=== PATIENT | female | born 1955 | race Caucasian/White ===

== ENCOUNTER 2020-08-27 19:27 | Emergency (ER) | payer SELFPAY ==
[~2020-08-27] VITALS: Ht 162.5 cm; Wt 61.2 kg
[2020-08-27 19:39] LABS: BASOPHILS # (AUTO) 0.1 10^3/uL (0.0-0.1); BASOPHILS % (AUTO) 1 % (0-10); EOSINOPHILS # (AUTO) 0.5 10^3/uL (0.0-0.3); EOSINOPHILS % (AUTO) 9 % (0-10); HEMATOCRIT 41 % (35-52); HEMOGLOBIN 13.8 g/dL (11.5-16.0); LYMPHOCYTES # (AUTO) 2.1 10^3/uL (1.0-4.0); LYMPHOCYTES % (AUTO) 33 % (12-44); MEAN CORPUSCULAR HEMOGLOBIN 29 pg (25-34); MEAN CORPUSCULAR HGB CONC 34 g/dL (32-36); MEAN CORPUSCULAR VOLUME 87 fL (80-99); MEAN PLATELET VOLUME 10.3 fL (9.0-12.2); MONOCYTES # (AUTO) 0.5 10^3/uL (0.0-1.0); MONOCYTES % (AUTO) 8 % (0-12); NEUTROPHILS # (AUTO) 3.2 10^3/uL (1.8-7.8); NEUTROPHILS % (AUTO) 50 % (42-75); PLATELET COUNT 230 10^3/uL (130-400); WHITE BLOOD COUNT 6.4 10^3/uL (4.3-11.0)
[2020-08-27 19:47] LABS: ALBUMIN 4.5 GM/DL (3.2-4.5); CHLORIDE 104 MMOL/L (98-107); POTASSIUM 3.9 MMOL/L (3.6-5.0); SODIUM 139 MMOL/L (135-145)
[2020-08-27 19:48] LABS: CALCIUM 9.8 MG/DL (8.5-10.1)
[2020-08-27 19:49] LABS: GLUCOSE 136 MG/DL (70-105); TOTAL PROTEIN 7.5 GM/DL (6.4-8.2)
[2020-08-27] MEDS ORDERED: ASPIRIN 81 MG CHEW (CHILDREN'S ASA) PO STA (19:49)
[2020-08-27 19:50] LABS: CARBON DIOXIDE 24 MMOL/L (21-32)
[2020-08-27 19:51] LABS: BILIRUBIN,TOTAL 0.4 MG/DL (0.1-1.0)
[2020-08-27 19:53] LABS: ALKALINE PHOSPHATASE 80 U/L (40-136); CREATININE SERUM 0.92 MG/DL (0.60-1.30); GFR ESTIMATED > 60
[2020-08-27 19:54] LABS: BUN/CREATININE RATIO 12
[2020-08-27 19:56] LABS: ALANINE AMINOTRANSFERASE 29 U/L (0-55); INR 0.9 (0.8-1.4); MAGNESIUM 2.1 MG/DL (1.6-2.4); PROTHROMBIN TIME PATIENT 12.1 SEC (12.2-14.7)
[2020-08-27 19:57] LABS: BILIRUBIN,URINE NEGATIVE (NEGATIVE); CLARITY,URINE CLEAR; COLOR,URINE YELLOW; GLUCOSE, URINE (UA) NEGATIVE (NEGATIVE); KETONES,URINE NEGATIVE (NEGATIVE); LEUKOCYTE ESTERASE ,URINE TRACE (NEGATIVE); NITRITE,URINE NEGATIVE (NEGATIVE); PH,URINE 6.5 (5-9); PROTEIN,URINE NEGATIVE (NEGATIVE)
[2020-08-27] MEDS ORDERED: meTOprolol 5 MG/5 ML (LOPRESSOR) VIAL IV ONE (20:00)
[2020-08-27 20:05] LABS: BACTERIA,URINE NEGATIVE /HPF; WBC,URINE RARE /HPF
[2020-08-27 20:11] LABS: AMPHETAMINE SCREEN, URINE NEGATIVE (NEGATIVE); BARBITURATE SCREEN URINE NEGATIVE (NEGATIVE); BENZODIAZEPINES SCREEN URINE NEGATIVE (NEGATIVE); CANNABINOID SCREEN, URINE NEGATIVE (NEGATIVE); COCAINE SCREEN URINE NEGATIVE (NEGATIVE); METHADONE STAT NEGATIVE (NEGATIVE); METHAMPHETAMINE SCREEN URINE S NEGATIVE (NEGATIVE); OPIATE SCREEN URINE NEGATIVE (NEGATIVE); OXYCODONE STAT NEGATIVE (NEGATIVE); PROPOXYPHENE STAT NEGATIVE (NEGATIVE); TRICYCLIC ANTIDEPRESSANTS SCRE NEGATIVE (NEGATIVE)
--- NOTE | 2020-08-27 20:17 | ED Cardiac General ---
History of Present Illness General Chief Complaint: Cardiac/General Problems Stated Complaint: PALPITATIONS Nursing Triage Note: PT BROUGHT IN BY [facility] FROM HOME WITH COMPLAINT OF RACING/POUNDING HEART RATE. STATES STARTED AROUND 1830 AFTER EATING SUPPER. HR FOR FIRE WAS 120s ON ARRIVAL. EMS STATES PT HEART RATE WENT BELOW 90 AFTER IV WAS STARTED. PT STATES SHE FEELS SHAKY. History of Present Illness Date Seen by Provider: Aug 27, 2020 Time Seen by Provider: 19:35 Initial Comments 64-year-old female presents for palpitations that began approximately 1 hour ago. No known cardiac history. She had mild nausea when the palpitations were happened but it has now resolved. She is not on aspirin or any medications for blood pressure. She denies chest pain or shortness of air. She goes to [facility] for her primary care. She has never seen a insulator apprentice. No history of diabetes. She does yoga on a regular basis and tries to eat a healthy diet. She was recently told that her cholesterol was slightly elevated. She is trying new dietary restrictions to bring that down. No family history of cardiac disease. She reports difficulty sleeping last night but no added stress or anxiety in her life. Timing/Duration: 1-3 hours Severity: mild Activities at Onset: none NTG SL CANDY SUPERVISOR: No ASA po CANDY SUPERVISOR: No Associated Systoms: Denies Symptoms Allergies and Home Medications Allergies Coded Allergies: No Known Drug Allergies (Unverified , 08/27/20) Patient Home Medication List Home Medication List Reviewed: Yes Review of Systems Review of Systems Constitutional: no symptoms reported, see HPI Cardiovascular: See HPI; Denies Chest Pain, Denies Edema, Denies Irregular Heart Rate, Denies Lightheadedness; Palpitations; Denies Syncope Gastrointestinal: No Symptoms Reported, See HPI Psychiatric/Neurological: No Symptoms Reported, See HPI All Other Systems Reviewed Negative Unless Noted: Yes Past Kseznsh-Agkbjr-Qhqhgo Hx Past Med/Social Hx: Reviewed Nursing Past Med/Soc Hx Patient Social History Alcohol Use: Denies Use Smoking Status: Never a Smoker Recent Infectious Disease Expo: No Recent Hopitalizations: No Immunizations Up To Date Tetanus Booster (TDap): Unknown PED Vaccines UTD: Yes Seasonal Allergies Seasonal Allergies: Yes Past Medical History Surgeries: Yes Appendectomy, Breast, Section Respiratory: Yes Asthma Cardiac: No Neurological: No Genitourinary: No Gastrointestinal: No Musculoskeletal: No Endocrine: No HEENT: No Cancer: No Psychosocial: No Integumentary: No Blood Disorders: No Physical Exam Vital Signs Vital Signs - First Documented 08/27/20 19:27 Pulse 93 Resp 17 B/P (MAP) 177/95 (122) Pulse Ox 100 O2 Delivery Room Air Capillary Refill : Less Than 3 Seconds Height, Weight, BMI Height: '" Weight: lbs. oz. kg; 23.00 BMI Method: General Appearance: No Apparent Distress, WD/WN HEENT: PERRL/EOMI, TMs Normal, Normal ENT Inspection, Pharynx Normal Neck: Full Range of Motion, Normal Inspection, Non Tender, Supple Respiratory: Chest Non Tender, Lungs Clear, Normal Breath Sounds Cardiovascular: Regular Rate, Rhythm, No Edema, No Murmur, Normal Peripheral Pulses Gastrointestinal: Normal Bowel Sounds, Non Tender, Soft Extremity: Normal Capillary Refill, Normal Inspection, Normal Range of Motion, Non Tender, No Calf Tenderness, No Pedal Edema Neurologic/Psychiatric: Alert, Oriented x3, No Motor/Sensory Deficits, Normal Mood/Affect Skin: Normal Color, Warm/Dry Progress/Results/Core Measures Results/Orders Lab Results Laboratory Tests Test 08/27/20 19:31 08/27/20 19:49 Range/Units White Blood Count 6.4 4.3-11.0 10^3/uL Red Blood Count 4.70 3.80-5.11 10^6/uL Hemoglobin 13.8 11.5-16.0 g/dL Hematocrit 41 35-52 % Mean Corpuscular Volume 87 80-99 fL Mean Corpuscular Hemoglobin 29 25-34 pg Mean Corpuscular Hemoglobin Concent 34 32-36 g/dL Red Cell Distribution Width 12.8 10.0-14.5 % Platelet Count 230 130-400 10^3/uL Mean Platelet Volume 10.3 9.0-12.2 fL Immature Granulocyte % (Auto) 0 % Neutrophils (%) (Auto) 50 42-75 % Lymphocytes (%) (Auto) 33 12-44 % Monocytes (%) (Auto) 8 0-12 % Eosinophils (%) (Auto) 9 0-10 % Basophils (%) (Auto) 1 0-10 % Neutrophils # (Auto) 3.2 1.8-7.8 10^3/uL Lymphocytes # (Auto) 2.1 1.0-4.0 10^3/uL Monocytes # (Auto) 0.5 0.0-1.0 10^3/uL Eosinophils # (Auto) 0.5 H 0.0-0.3 10^3/uL Basophils # (Auto) 0.1 0.0-0.1 10^3/uL Immature Granulocyte # (Auto) 0.0 0.0-0.1 10^3/uL Prothrombin Time 12.1 L 12.2-14.7 SEC INR Comment 0.9 0.8-1.4 Activated Partial Thromboplast Time 25 24-35 SEC Sodium Level 139 135-145 MMOL/L Potassium Level 3.9 3.6-5.0 MMOL/L Chloride Level 104 98-107 MMOL/L Carbon Dioxide Level 24 21-32 MMOL/L Anion Gap 11 5-14 MMOL/L Blood Urea Nitrogen 11 7-18 MG/DL Creatinine 0.92 0.60-1.30 MG/DL Estimat Glomerular Filtration Rate > 60 BUN/Creatinine Ratio 12 Glucose Level 136 H 70-105 MG/DL Calcium Level 9.8 8.5-10.1 MG/DL Corrected Calcium 9.4 8.5-10.1 MG/DL Magnesium Level 2.1 1.6-2.4 MG/DL Total Bilirubin 0.4 0.1-1.0 MG/DL Aspartate Amino Transf (AST/SGOT) 26 5-34 U/L Alanine Aminotransferase (ALT/SGPT) 29 0-55 U/L Alkaline Phosphatase 80 40-136 U/L Myoglobin 31.4 10.0-92.0 NG/ML Troponin I < 0.028 <0.028 NG/ML Total Protein 7.5 6.4-8.2 GM/DL Albumin 4.5 3.2-4.5 GM/DL Urine Color YELLOW Urine Clarity CLEAR Urine pH 6.5 5-9 Urine Specific [place] <=1.005 1.016-1.022 Urine Protein NEGATIVE NEGATIVE Urine Glucose (UA) NEGATIVE NEGATIVE Urine Ketones NEGATIVE NEGATIVE Urine Nitrite NEGATIVE NEGATIVE Urine Bilirubin NEGATIVE NEGATIVE Urine Urobilinogen 0.2 < = 1.0 MG/DL Urine Leukocyte Esterase TRACE H NEGATIVE Urine RBC (Auto) NEGATIVE NEGATIVE Urine RBC NONE /HPF Urine WBC RARE /HPF Urine Squamous Epithelial Cells NONE /HPF Urine Crystals NONE /LPF Urine Bacteria NEGATIVE /HPF Urine Casts NONE /LPF Urine Mucus NEGATIVE /LPF Urine Culture Indicated NO Urine Opiates Screen NEGATIVE NEGATIVE Urine Oxycodone Screen NEGATIVE NEGATIVE Urine Methadone Screen NEGATIVE NEGATIVE Urine Propoxyphene Screen NEGATIVE NEGATIVE Urine Barbiturates Screen NEGATIVE NEGATIVE Ur Tricyclic Antidepressants Screen NEGATIVE NEGATIVE Urine Phencyclidine Screen NEGATIVE NEGATIVE Urine Amphetamines Screen NEGATIVE NEGATIVE Urine Methamphetamines Screen NEGATIVE NEGATIVE Urine Benzodiazepines Screen NEGATIVE NEGATIVE Urine Cocaine Screen NEGATIVE NEGATIVE Urine Cannabinoids Screen NEGATIVE NEGATIVE My Orders Orders - ADONAY,CARTER DAIRY [employer]PPLIES SALES REPRESENTATIVE Cbc With Automated Diff (08/27/20:31) Magnesium (08/27/20:31) Chest 1 View, Ap/Pa Only (08/27/20:31) Ekg Tracing (08/27/20:31) Comprehensive Metabolic Panel (08/27/20:) Myoglobin Serum (08/27/20:) Protime With Inr (08/27/20:) Partial Thromboplastin Time (08/27/20:31) Monitor-Rhythm Ecg Trace Only (08/27/20:31) Ed Iv/Invasive Line Start (08/27/20:31) Troponin I (08/27/20:31) Drug Screen Stat (Urine) (08/27/20 19:35) Ua Culture If Indicated (08/27/20 19:35) Aspirin Chewable Tablet (Baby Aspirin Ch (08/27/20 19:49) Metoprolol Tartrate Injection (Lopressor (08/27/20 20:00) Rx-Hydroxyzine Pamoate (Rx-Vistaril) (08/27/20 20:49) Medications Given in ED Current Medications Medications Dose Ordered Sig/Yvonne Route Start Time Stop Time Status Last Admin Dose Admin Metoprolol Tartrate 5 mg ONCE ONCE IV 08/27/20 20:00 08/27/20 20:01 DC 08/27/20 20:00 5 MG Vital Signs/I&O 08/27/20 08/27/20 19:27 21:04 Pulse 93 75 Resp 17 14 B/P (MAP) 177/95 (122) 143/86 Pulse Ox 100 99 O2 Delivery Room Air Room Air Blood Pressure Mean: 122 Progress Progress Note : Time: 19:35 Progress Note Patient seen and evaluated, will give aspirin 324 mg orally. EKG labs and chest x-ray. Patient does report her symptoms have resolved but will continue to monitor. Initial heart rate in the 90s, after 5 to 10 minutes on the exam table her heart rate was in the 80s. 1999 will give metoprolol 5 mg IV for continued hypertension and heart rate 80s to 90s. 2019 B/P 140s/80s and HR 70-80. No further palpitations. 2039 Daughter here, concerned bc patient took Ativan 1mg at HS for the last 12- 18 months. She stopped it per [facility] and was started on Trazadone last night, it caused GI upset and she didn't sleep good. Daughter worries about withdrawals from benzos, which is quite possible. Her palpitations are gone and she reports feeling great. Discussed various options to help with sleep. She would like to try Vistaril. She has done Melatonin in the past, with no improvement of her symptoms. Discharge instructions and return precautions reviewed with patient. All questions answered. Initial ECG Impression Date: Aug 27, 2020 Initial ECG Impression Time: 19:33 Initial ECG Rate: 93 Initial ECG Rhythm: Normal Sinus, PAC Initial ECG Intervals: Normal Initial ECG Intervals UT 158, QRSD 107, QT 364, QTc 453. [place] P 58, QRS 63, T- 13 Initial ECG Impression: Normal Initial ECG Comparisson: No Previous ECG Available Comment Sinus rhythm with PACs. Departure Impression Primary Impression: Palpitations Additional Impressions: PAC (premature atrial contraction) Insomnia Qualified Codes: G47.00 - Insomnia, unspecified Disposition: HOME, SELF-CARE Condition: Improved Departure-Patient Inst. Decision time for Depature: 20:40 Referrals: THIAGO DEL ROSARIO DO [facility]/JENNIFER Patient Instructions: Insomnia (DC), Palpitations (DC) Copy Copies To 1: THIAGO DEL ROSARIO AMY ARNP Aug 27, 2020 20:17
--- NOTE | 2020-08-27 20:18 | Diagnostic Imaging Report ---
EXAMINATION: Chest radiograph, portable AP view. DATE: 08/27/2020 7:46 PM INDICATION: 64-year-old female, chest pain. COMPARISON: None. FINDINGS: Heart size and mediastinal contours are unremarkable. There is no identified pneumothorax. There is no large pleural effusion. There is no identified focal airspace consolidation. There is a calcified right lower lobe granuloma. IMPRESSION: No identified acute cardiopulmonary abnormality. Dictated by: Dictated on workstation # [id number]
[2020-08-27] MEDS ORDERED: RX-HYDROXYZINE PAMOATE 25 MG CAP #4 PO STA (20:49)
[2020-08-27 21:04] VITALS: BP 143/86
== END 2020-08-27 21:04 | disposition home or self-care (01) ==
LOC: ER 19:29
DX: R00.2 Palpitations (principal); I49.1 Atrial premature depolarization; G47.00 Insomnia, unspecified; I10 Essential (primary) hypertension
CPT/HCPCS: 36415; 71045; 80053; 80306; 81000; 83735; 83874; 84484; 85025; 85610; 85730; 93005; 93041

== ENCOUNTER 2020-09-03 00:10 | Emergency (ER) | payer SELFPAY ==
[~2020-09-03] VITALS: Ht 162.6 cm; Wt 59.0 kg
[2020-09-03] MEDS ORDERED: LORazepam 0.5 MG (ATIVAN) TABLET PO STA (00:34)
[2020-09-03 00:40] LABS: BASOPHILS % (AUTO) 1 % (0-10); EOSINOPHILS # (AUTO) 0.4 10^3/uL (0.0-0.3); EOSINOPHILS % (AUTO) 6 % (0-10); HEMATOCRIT 39 % (35-52); HEMOGLOBIN 13.2 g/dL (11.5-16.0); LYMPHOCYTES # (AUTO) 1.7 10^3/uL (1.0-4.0); LYMPHOCYTES % (AUTO) 28 % (12-44); MEAN CORPUSCULAR HEMOGLOBIN 29 pg (25-34); MEAN CORPUSCULAR HGB CONC 34 g/dL (32-36); MEAN CORPUSCULAR VOLUME 86 fL (80-99); MEAN PLATELET VOLUME 9.9 fL (9.0-12.2); MONOCYTES # (AUTO) 0.5 10^3/uL (0.0-1.0); MONOCYTES % (AUTO) 8 % (0-12); NEUTROPHILS # (AUTO) 3.4 10^3/uL (1.8-7.8); NEUTROPHILS % (AUTO) 57 % (42-75); PLATELET COUNT 171 10^3/uL (130-400)
[2020-09-03 00:50] LABS: ALBUMIN 4.4 GM/DL (3.2-4.5); CHLORIDE 105 MMOL/L (98-107); POTASSIUM 3.6 MMOL/L (3.6-5.0); SODIUM 138 MMOL/L (135-145)
[2020-09-03 00:52] LABS: CALCIUM 9.9 MG/DL (8.5-10.1)
[2020-09-03 00:53] LABS: GLUCOSE 98 MG/DL (70-105); TOTAL PROTEIN 7.6 GM/DL (6.4-8.2)
[2020-09-03 00:54] LABS: BILIRUBIN,TOTAL 0.4 MG/DL (0.1-1.0); CARBON DIOXIDE 18 MMOL/L (21-32)
[2020-09-03 00:56] LABS: ALKALINE PHOSPHATASE 83 U/L (40-136); GFR ESTIMATED > 60
[2020-09-03 00:57] LABS: BUN/CREATININE RATIO 13
[2020-09-03 00:59] LABS: ALANINE AMINOTRANSFERASE 31 U/L (0-55)
[2020-09-03 01:34] LABS: BILIRUBIN,URINE NEGATIVE (NEGATIVE); CLARITY,URINE SL CLOUDY; COLOR,URINE YELLOW; GLUCOSE, URINE (UA) NEGATIVE (NEGATIVE); KETONES,URINE TRACE (NEGATIVE); LEUKOCYTE ESTERASE ,URINE NEGATIVE (NEGATIVE); NITRITE,URINE NEGATIVE (NEGATIVE); PH,URINE 6.5 (5-9); PROTEIN,URINE NEGATIVE (NEGATIVE)
[2020-09-03 01:45] LABS: BACTERIA,URINE NEGATIVE /HPF; SQUAMOUS EPITHELIAL CELL,UR 0-2 /HPF
[2020-09-03 01:47] LABS: AMPHETAMINE SCREEN, URINE NEGATIVE (NEGATIVE); BARBITURATE SCREEN URINE NEGATIVE (NEGATIVE); BENZODIAZEPINES SCREEN URINE NEGATIVE (NEGATIVE); CANNABINOID SCREEN, URINE NEGATIVE (NEGATIVE); COCAINE SCREEN URINE NEGATIVE (NEGATIVE); METHADONE STAT NEGATIVE (NEGATIVE); METHAMPHETAMINE SCREEN URINE S NEGATIVE (NEGATIVE); OPIATE SCREEN URINE NEGATIVE (NEGATIVE); OXYCODONE STAT NEGATIVE (NEGATIVE); PROPOXYPHENE STAT NEGATIVE (NEGATIVE); TRICYCLIC ANTIDEPRESSANTS SCRE NEGATIVE (NEGATIVE)
[2020-09-03] MEDS ORDERED: LORazepam 0.5 MG (ATIVAN) TABLET PO ONE (02:00)
--- NOTE | 2020-09-03 02:01 | ED General ---
General Chief Complaint: Cardiac/General Problems Stated Complaint: HIGH BLOOD PRESSURE 201/103,JERKY Nursing Triage Note: PT ARRIVED BY PRIVATE VEHICLE WITH DAUGHTER. PT HAD CHIEF COMPLAINT OF HYPERTENSION. PT WAS ALERT, ORIENTED X4 AND AMBULATORY. PT SEEMED A LITTLE ANXIOUS ON ARRIVAL. PT'S VITAL SIGNS WERE TAKEN, EKG WAS COMPLETED AND IV WAS STARTED WITH BLOOD DRAW (20 GAUGE IN RAC). PT STATED THAT SHE WAS HERE LAST WEDNESDAY WITH SAME ISSUES. PRIOR TO TUESDAYS VISIT SHE WAS SEEN AT [facility] AND HER VISIT WAS PERFECT (LABS, HEALTH AND BP). THE DOCTOR DECIDED TO TAKE HER OFF HER ATIVAN THAT SHE TAKES TO SLEEP AND PUT HER ON TRAZADONE. PT HAS BEEN TAKING ATIVAN FOR OVER A YEAR TO HELP HER SLEEP. 24 HOURS AFTER STOPPING HER ATIVAN, SHE STARTED TO SHAKE, HAVE NAUSEA, SHAKING, JERKING, AND HYPERTENSION. SINCE HER ER VISIT SHE HAS BEEN LAYING IN BED NOT DOING ANYTHING. TODAY WAS HER FIRST DAY GETTING UP AND DOING SOMETHING. PT TOOK IBUPROFEN, BUT HASN'T TAKEN TRAZADONE SINCE HER FIRST NIGHT TAKING IT. PT DENIES SMOKING, ALCOHOL OR DRUG USE. PT DENIES ALLERGIES TO MEDICATIONS. REPORT WAS GIVEN TO PROVIDER. Nursing Sepsis Screen: No Definite Risk Source of Information: Patient Exam Limitations: No Limitations History of Present Illness Date Seen by Provider: Sep 03, 2020 Time Seen by Provider: 01:08 Initial Comments Patient presents ER with her daughter and chief complaint that she has been having high blood pressure feeling shaky and miserable for the past week since she stopped taking her Ativan under the guidance of her primary care doctor. She was taking 1 mg Ativan at night for sleep for better part of a year. They switched her over to trazodone but did not have her wean off the dose. She called her primary care office and they told her to drink water and just push through it. Patient has had problems getting to sleep all her life. She is not having any chest pain or history of coronary disease Allergies and Home Medications Allergies Coded Allergies: No Known Drug Allergies (Unverified , 08/27/20) Patient Home Medication List Home Medication List Reviewed: Yes Review of Systems Review of Systems Constitutional: No chills, No diaphoresis EENTM: No ear discharge, No ear pain Respiratory: No cough, No short of breath Cardiovascular: No edema, No palpitations Gastrointestinal: No abdominal pain, No nausea Genitourinary: No discharge, No dysuria Musculoskeletal: No back pain, No joint pain All Other Systems Reviewed Negative Unless Noted: Yes Past Bbnhiui-Aijgpl-Xuelux Hx Patient Social History Alcohol Use: Denies Use Smoking Status: Never a Smoker 2nd Hand Smoke Exposure: No Recent Infectious Disease Expo: No Recent Hopitalizations: No Immunizations Up To Date Tetanus Booster (TDap): Unknown PED Vaccines UTD: Yes Seasonal Allergies Seasonal Allergies: Yes Past Medical History Surgeries: Yes Appendectomy, Breast, Section Respiratory: Yes Asthma Cardiac: No Neurological: No Genitourinary: No Gastrointestinal: No Musculoskeletal: No Endocrine: No HEENT: No Cancer: No Psychosocial: No Integumentary: No Blood Disorders: No Physical Exam Vital Signs Vital Signs - First Documented 09/03/20 00:15 Temp 35.8 Pulse 87 Resp 20 B/P (MAP) 199/106 (137) Pulse Ox 98 O2 Delivery Room Air Capillary Refill : Less Than 3 Seconds Height, Weight, BMI Height: '" Weight: lbs. oz. kg; 22.00 BMI Method: General Appearance: No Apparent Distress, WD/WN Eyes: Bilateral Eye Normal Inspection, Bilateral Eye PERRL, Bilateral Eye EOMI HEENT: PERRL/EOMI, Pharynx Normal, Moist Mucous Membranes Neck: Full Range of Motion, Normal Inspection Respiratory: Lungs Clear, Normal Breath Sounds, No Accessory Muscle Use, No Respiratory Distress Cardiovascular: Regular Rate, Rhythm, No Edema, Normal Peripheral Pulses Progress/Results/Core Measures Suspected Sepsis Recent Fever Within 48 Hours: No Infection Criteria Present: None New/Unexplained Altered Menta: No Sepsis Screen: No Definite Risk SIRS Temperature: Pulse: 87 Respiratory Rate: 20 Laboratory Tests 09/03/20 00:28: White Blood Count 6.0 Blood Pressure 199 /106 Mean: 137 Laboratory Tests 09/03/20 00:28: Creatinine 0.90, Platelet Count 171, Total Bilirubin 0.4 Results/Orders Lab Results Laboratory Tests Test 09/03/20 00:28 09/03/20 01:28 Range/Units White Blood Count 6.0 4.3-11.0 10^3/uL Red Blood Count 4.51 3.80-5.11 10^6/uL Hemoglobin 13.2 11.5-16.0 g/dL Hematocrit 39 35-52 % Mean Corpuscular Volume 86 80-99 fL Mean Corpuscular Hemoglobin 29 25-34 pg Mean Corpuscular Hemoglobin Concent 34 32-36 g/dL Red Cell Distribution Width 12.4 10.0-14.5 % Platelet Count 171 130-400 10^3/uL Mean Platelet Volume 9.9 9.0-12.2 fL Immature Granulocyte % (Auto) 0 % Neutrophils (%) (Auto) 57 42-75 % Lymphocytes (%) (Auto) 28 12-44 % Monocytes (%) (Auto) 8 0-12 % Eosinophils (%) (Auto) 6 0-10 % Basophils (%) (Auto) 1 0-10 % Neutrophils # (Auto) 3.4 1.8-7.8 10^3/uL Lymphocytes # (Auto) 1.7 1.0-4.0 10^3/uL Monocytes # (Auto) 0.5 0.0-1.0 10^3/uL Eosinophils # (Auto) 0.4 H 0.0-0.3 10^3/uL Basophils # (Auto) 0.0 0.0-0.1 10^3/uL Immature Granulocyte # (Auto) 0.0 0.0-0.1 10^3/uL Sodium Level 138 135-145 MMOL/L Potassium Level 3.6 3.6-5.0 MMOL/L Chloride Level 105 98-107 MMOL/L Carbon Dioxide Level 18 L 21-32 MMOL/L Anion Gap 15 H 5-14 MMOL/L Blood Urea Nitrogen 12 7-18 MG/DL Creatinine 0.90 0.60-1.30 MG/DL Estimat Glomerular Filtration Rate > 60 BUN/Creatinine Ratio 13 Glucose Level 98 70-105 MG/DL Calcium Level 9.9 8.5-10.1 MG/DL Corrected Calcium 9.6 8.5-10.1 MG/DL Total Bilirubin 0.4 0.1-1.0 MG/DL Aspartate Amino Transf (AST/SGOT) 34 5-34 U/L Alanine Aminotransferase (ALT/SGPT) 31 0-55 U/L Alkaline Phosphatase 83 40-136 U/L Total Protein 7.6 6.4-8.2 GM/DL Albumin 4.4 3.2-4.5 GM/DL Urine Color YELLOW Urine Clarity SL CLOUDY Urine pH 6.5 5-9 Urine Specific [place] 1.010 L 1.016-1.022 Urine Protein NEGATIVE NEGATIVE Urine Glucose (UA) NEGATIVE NEGATIVE Urine Ketones TRACE H NEGATIVE Urine Nitrite NEGATIVE NEGATIVE Urine Bilirubin NEGATIVE NEGATIVE Urine Urobilinogen 0.2 < = 1.0 MG/DL Urine Leukocyte Esterase NEGATIVE NEGATIVE Urine RBC (Auto) NEGATIVE NEGATIVE Urine RBC NONE /HPF Urine WBC NONE /HPF Urine Squamous Epithelial Cells 0-2 /HPF Urine Crystals NONE /LPF Urine Bacteria NEGATIVE /HPF Urine Casts NONE /LPF Urine Mucus SMALL H /LPF Urine Culture Indicated NO Urine Opiates Screen NEGATIVE NEGATIVE Urine Oxycodone Screen NEGATIVE NEGATIVE Urine Methadone Screen NEGATIVE NEGATIVE Urine Propoxyphene Screen NEGATIVE NEGATIVE Urine Barbiturates Screen NEGATIVE NEGATIVE Ur Tricyclic Antidepressants Screen NEGATIVE NEGATIVE Urine Phencyclidine Screen NEGATIVE NEGATIVE Urine Amphetamines Screen NEGATIVE NEGATIVE Urine Methamphetamines Screen NEGATIVE NEGATIVE Urine Benzodiazepines Screen NEGATIVE NEGATIVE Urine Cocaine Screen NEGATIVE NEGATIVE Urine Cannabinoids Screen NEGATIVE NEGATIVE My Orders Orders - EL PEREZ Continuous Ekg Monitoring (09/03/20 00:16) Ekg Tracing (09/03/20 00:16) Cbc With Automated Diff (09/03/20 00:34) Comprehensive Metabolic Panel (09/03/20 00:34) Ua Culture If Indicated (09/03/20 00:34) Drug Screen Stat (Urine) (09/03/20 00:34) Lorazepam Tablet (Ativan Tablet) (09/03/20 00:34) Lorazepam Tablet (Ativan Tablet) (09/03/20 02:00) Vital Signs/I&O 09/03/20 00:15 Temp 35.8 Pulse 87 Resp 20 B/P (MAP) 199/106 (137) Pulse Ox 98 O2 Delivery Room Air Capillary Refill : Less Than 3 Seconds Blood Pressure Mean: 137 Progress Note : Time: 01:59 Progress Note It is apparent the patient is withdrawing from benzodiazepines. We are going to give her half a milligram of Ativan tonight put her on a slow taper over the next 3 weeks and have her follow-up with primary care to address her longstanding insomnia. While she does have significantly elevated hypertension it is likely due to her withdrawal symptoms since it started after her last dose of Ativan about 24 hours later. She has been off the medication for 8 days. Departure Impression Primary Impression: Benzodiazepine dependence Additional Impression: Benzodiazepine withdrawal Qualified Codes: F13.230 - Sedative, hypnotic or anxiolytic dependence with withdrawal, uncomplicated Disposition: 01 HOME, SELF-CARE Condition: Stable Departure-Patient Inst. Decision time for Depature: 02:00 Referrals: [facility] (PCP/Family) Primary Care Physician Patient Instructions: Prescription Drug Withdrawal (DC) Add. Discharge Instructions: Through your prescribed use of a benzodiazepine over the last year you have developed some dependence on the medication however you are not addicted to the medication. It will take a week or 2 for you to get off the medicine and we should use a taper. For the next week you should take 1/2 mg every night at the same time you would normally take Ativan for sleep. The following week cut the tablet in half and take 1/4 mg every night. The third week you may take 1 tablet every other day as necessary. If you are having difficulty with symptoms then take another dose and follow-up with your primary care doctor to reestablish your taper at a slightly slower rate. All discharge instructions reviewed with patient and/or family. Voiced understanding. Scripts Lorazepam (Ativan) 0.5 Mg Tablet 0.5 MG PO HS for 21 Days, #14 TAB 0 Refills 1 tab nightly x 7 days 1/2 tab nightly x 7 days 1/2 tab every other night as needed. Prov: EL PEREZ 09/03/20 Copy Copies To 1: THIAGO DEL ROSARIO DO EL PEREZ Sep 03, 2020 02:01
[2020-09-03] MEDS ORDERED: LORA-404 PO (02:05)
[2020-09-03 02:15] VITALS: BP 163/94
== END 2020-09-03 02:15 | disposition home or self-care (01) ==
LOC: EDUNIT# 00:10 → ER 00:13
DX: F13.239 Sedative, hypnotic or anxiolytic dependence with withdrawal, unspecified (principal); I10 Essential (primary) hypertension
CPT/HCPCS: 36415; 80053; 80306; 81000; 85025; 93005

== ENCOUNTER 2021-09-03 18:59 | Emergency (ER) | payer OTHER ==
[~2021-09-03] VITALS: Ht 162.5 cm; Wt 63.5 kg
[~2021-09-03 18:59] MED LIST: LORA-404 PO
--- NOTE | 2021-09-03 19:17 | ED Cardiac General ---
History of Present Illness General Chief Complaint: Cardiac/General Problems Stated Complaint: HIGH BLOOD PRESSURE Source: patient History of Present Illness Date Seen by Provider: Sep 03, 2021 Time Seen by Provider: 19:08 Initial Comments PT ARRIVES VIA POV FROM HOME--DROVE SELF HERE, LIVES ALONE C/O ELEVATED BLOOD PRESSURE--BP 195/99 AT HOME, JUST PRIOR TO ARRIVAL STATES SHE "JUST HASN'T FELT GOOD" FOR SEVERAL DAYS, WORSE THE LAST 2-3 DAYS C/O DECREASED APPETITE C/O FEELING VERY NERVOUS C/O FEELING SLIGHTLY LIGHTHEADED C/O HEADACHE C/O NAUSEA, NO VOMITING C/O FEELING "SHAKEY INSIDE" NO VISION CHANGES NO CHEST PAIN NO INCREASE IN CHRONIC SHORTNESS OF BREATH--HAS ASTHMA AND TAKES FLOVENT DAILY, HAS NOT USED ALBUTEROL RECENTLY NO PARESTHESIAS OR MOTOR DEFICITS NO SWELLING IN LEGS/ FEET NO FEVER OR RECENT ILLNESS PT STATES SHE HAS NOT SEEN A DR IN OVER A YEAR--STATES "I DON'T GO TO THE DR" DENIES ANY HISTORY OF HTN. STATES SHE WAS ON LORAZEPAM FOR OVER A YEAR, AND THE LAST TIME SHE SAW A DR--OVER A YEAR AGO--THE LORAZEPAM WAS STOPPED AND SHE WAS SWITCHED TO A DIFFERENT MEDICATION AT THAT TIME( DOES NOT KNOW NAME OF MEDICATION--TRAZADONE, PER OLD CHART) --PT TOOK ONE PILL AND THEN DID NOT TAKE ANYMORE. HAS NOT FOLLOWED UP WITH A DR. SINCE THEN PT DOES STATE THAT EVERYONE IN HER FAMILY HAS ANXIETY AND PANIC ATTACKS PT HAS NOT HAD COVID OR FLU VACCINES AND ADAMANTLY REFUSES TO BE TESTED FOR EITHER ONE. PT DENIES HISTORY OF SIMILAR, BUT WAS SEEN HERE A YEAR AGO FOR SIMILAR SYMPTOMS WHEN SHE STOPPED TAKING LORAZEPAM AND WAS SWITCHED TO TRAZADONE FOR SLEEP. PCP: KEYSHA Allergies and Home Medications Allergies Coded Allergies: No Known Drug Allergies (Unverified , 08/27/20) Patient Home Medication List Home Medication List Reviewed: Yes Hydroxyzine Pamoate (Hydroxyzine Pamoate) 50 Mg Capsule, 50 MG PO Q6H PRN for ANXIETY Prescribed by: KINZA CHOWDARY on 09/03/21 228 Lorazepam (Ativan) 0.5 Mg Tablet, 0.5 MG PO HS Prescribed by: EL PEREZ on 09/03/20 0205 Review of Systems Review of Systems Constitutional: see HPI EENTM: No Symptoms Reported Respiratory: See HPI Cardiovascular: Denies Chest Pain, Denies Edema, Denies Irregular Heart Rate; Lightheadedness; Denies Palpitations, Denies Syncope Gastrointestinal: See HPI; Denies Abdominal Pain; Nausea, Poor Appetite; Denies Vomiting Genitourinary: No Symptoms Reported Musculoskeletal: no symptoms reported Skin: no symptoms reported Psychiatric/Neurological: See HPI, Anxiety, Headache; Denies Numbness, Denies Paresthesia, Denies Seizure, Denies Tingling, Denies Weakness Endocrine: No Symptoms Reported Hematologic/Lymphatic: No Symptoms Reported Past Nhhnpvx-Merobr-Fiaybl Hx Patient Social History Tobacco Use?: No Smoking Status: Never a Smoker Substance use?: No Alcohol Use?: No Immunizations Up To Date Tetanus Booster (TDap): Unknown PED Vaccines UTD: Yes Seasonal Allergies Seasonal Allergies: Yes Past Medical History Surgeries: Yes Appendectomy, Breast, Section Respiratory: Yes Asthma Cardiac: No Neurological: No Genitourinary: No Gastrointestinal: No Musculoskeletal: No Endocrine: No HEENT: No Cancer: No Psychosocial: Yes Anxiety Integumentary: No Blood Disorders: No Physical Exam Vital Signs Vital Signs - First Documented 09/03/21 19:06 Temp 36.6 Pulse 107 Resp 20 B/P (MAP) 218/108 (144) Pulse Ox 100 Capillary Refill : Height, Weight, BMI Height: '" Weight: lbs. oz. kg; 22.00 BMI Method: General Appearance: No Apparent Distress, WD/WN, Anxious, Other (TALKS RAPIDLY AT LENGTH, WITHOUT DIFFICULTY. ) Neck: Normal Inspection Respiratory: Normal Breath Sounds, No Accessory Muscle Use, No Respiratory Distress Cardiovascular: No Edema, No JVD, No Murmur, Normal Peripheral Pulses, Tachycardia (MILD TACHYCARDIA--105) Gastrointestinal: Soft Extremity: Normal Capillary Refill, Normal Inspection, Normal Range of Motion, Non Tender, No Calf Tenderness, No Pedal Edema Neurologic/Psychiatric: Alert, Oriented x3, No Motor/Sensory Deficits, director business development II- XII Norm as Tested, Other (ANXIOUS) Skin: Normal Color Progress/Results/Core Measures Results/Orders Lab Results Laboratory Tests Test 09/03/21 19:15 09/03/21 19:55 Range/Units White Blood Count 6.8 4.3-11.0 10^3/uL Red Blood Count 5.06 3.80-5.11 10^6/uL Hemoglobin 14.9 11.5-16.0 g/dL Hematocrit 44 35-52 % Mean Corpuscular Volume 88 80-99 fL Mean Corpuscular Hemoglobin 29 25-34 pg Mean Corpuscular Hemoglobin Concent 34 32-36 g/dL Red Cell Distribution Width 12.4 10.0-14.5 % Platelet Count 241 130-400 10^3/uL Mean Platelet Volume 9.9 9.0-12.2 fL Immature Granulocyte % (Auto) 0 % Neutrophils (%) (Auto) 56 42-75 % Lymphocytes (%) (Auto) 31 12-44 % Monocytes (%) (Auto) 7 0-12 % Eosinophils (%) (Auto) 4 0-10 % Basophils (%) (Auto) 1 0-10 % Neutrophils # (Auto) 3.8 1.8-7.8 10^3/uL Lymphocytes # (Auto) 2.1 1.0-4.0 10^3/uL Monocytes # (Auto) 0.5 0.0-1.0 10^3/uL Eosinophils # (Auto) 0.3 0.0-0.3 10^3/uL Basophils # (Auto) 0.1 0.0-0.1 10^3/uL Immature Granulocyte # (Auto) 0.0 0.0-0.1 10^3/uL Sodium Level 139 135-145 MMOL/L Potassium Level 3.6 3.6-5.0 MMOL/L Chloride Level 102 98-107 MMOL/L Carbon Dioxide Level 22 21-32 MMOL/L Anion Gap 15 H 5-14 MMOL/L Blood Urea Nitrogen 12 7-18 MG/DL Creatinine 0.88 0.60-1.30 MG/DL Estimat Glomerular Filtration Rate 72 BUN/Creatinine Ratio 14 Glucose Level 93 70-105 MG/DL Calcium Level 10.1 8.5-10.1 MG/DL Corrected Calcium 8.5-10.1 MG/DL Magnesium Level 2.0 1.6-2.4 MG/DL Total Bilirubin 0.4 0.1-1.0 MG/DL Aspartate Amino Transf (AST/SGOT) 29 5-34 U/L Alanine Aminotransferase (ALT/SGPT) 31 0-55 U/L Alkaline Phosphatase 84 40-136 U/L Troponin I < 0.028 <0.028 NG/ML B-Type Natriuretic Peptide 21.8 <100.0 PG/ML Total Protein 7.8 6.4-8.2 GM/DL Albumin 4.7 H 3.2-4.5 GM/DL Urine Color YELLOW Urine Clarity CLEAR Urine pH 6.0 5-9 Urine Specific Elmore <=1.005 1.016-1.022 Urine Protein NEGATIVE NEGATIVE Urine Glucose (UA) NEGATIVE NEGATIVE Urine Ketones TRACE H NEGATIVE Urine Nitrite NEGATIVE NEGATIVE Urine Bilirubin NEGATIVE NEGATIVE Urine Urobilinogen 0.2 < = 1.0 MG/DL Urine Leukocyte Esterase NEGATIVE NEGATIVE Urine RBC (Auto) NEGATIVE NEGATIVE Urine RBC NONE /HPF Urine WBC NONE /HPF Urine Squamous Epithelial Cells NONE /HPF Urine Renal Epithelial Cells NONE /HPF Urine Crystals NONE /LPF Urine Bacteria NEGATIVE /HPF Urine Casts NONE /LPF Urine Mucus NEGATIVE /LPF Urine Culture Indicated NO My Orders Orders - KINZA CHOWDARY DO Ed Iv/Invasive Line Start (09/03/21 19:09) Ekg Tracing (09/03/21 19:09) Monitor-Rhythm Ecg Trace Only (09/03/21 19:09) Chest 1 View, Ap/Pa Only (09/03/21 19:09) Bnp Kidder (09/03/21 19:09) Cbc With Automated Diff (09/03/21 19:09) Comprehensive Metabolic Panel (09/03/21 19:09) Magnesium (09/03/21 19:09) Troponin I Kidder (09/03/21 19:09) Ua Culture If Indicated (09/03/21 19:09) Hydralazine Injection (Apresoline Inject (09/03/21 19:30) Hydralazine Injection (Apresoline Inject (09/03/21 20:15) Lorazepam Injection (Ativan Injection) (09/03/21 20:15) Ct Angio Chest W (09/03/21 21:04) Ct Head Wo-R/O Stroke (09/03/21 21:04) Iohexol Injection (Omnipaque 350 Mg/Ml 1 (09/03/21 21:15) Ns (Ivpb) (Sodium Chloride 0.9% Ivpb Bag (09/03/21 21:15) Ed Iv/Invasive Line Start (09/03/21 21:31) Lactated Ringers (Lr 1000 Ml Iv Solution (09/03/21 21:45) Lorazepam Injection (Ativan Injection) (09/03/21 21:45) Medications Given in ED Current Medications Medications Dose Ordered Sig/Yvonne Route Start Time Stop Time Status Last Admin Dose Admin Hydralazine HCl 10 mg ONCE ONCE IV 09/03/21 19:30 09/03/21 19:31 DC 09/03/21 19:42 10 MG Hydralazine HCl 10 mg ONCE ONCE IV 09/03/21 20:15 09/03/21 20:16 DC 09/03/21 20:34 10 MG Iohexol 100 ml ONCE ONCE IV 09/03/21 21:15 09/03/21 21:16 DC 09/03/21 21:30 61 ML Lactated Ringer's 1,000 ml @ 0 mls/hr Q0M ONCE IV 09/03/21 21:45 09/03/21 21:46 DC 09/03/21 21:41 0 MLS/HR Lorazepam 2 mg ONCE ONCE IVP 09/03/21 20:15 09/03/21 20:16 DC 09/03/21 20:35 2 MG Lorazepam 2 mg ONCE ONCE IVP 09/03/21 21:45 09/03/21 21:46 DC 09/03/21 21:40 2 MG Sodium Chloride 100 ml ONCE ONCE IV 09/03/21 21:15 09/03/21 21:16 DC 09/03/21 21:30 70 ML Vital Signs/I&O 09/03/21 09/03/21 19:06 22:45 Temp 36.6 Pulse 107 106 Resp 20 17 B/P (MAP) 218/108 (144) 104/50 Pulse Ox 100 100 09/04/21 00:00 Intake Total 1000 ml Balance 1000 ml Progress Progress Note : Progress Note GIVEN HYDRALAZINE--BP DOWN 2009--PT NOW C/O FEELING "WORSE"--INCREASED ANXIETY AND TREMULOUSNESS--GIVEN LORAZEPAM AND ADDITIONAL HYDRALAZINE. PT STATES HER DAUGHTER CAN DRIVE HER HOME. 2099--BP DOWN TO 140/70, HR IS 135, AND PT STATES SHE IS FEELING AND IS APPEARING MORE ANXIOUS AND IS MORE SHAKEY /TREMULOUS THAN SHE WAS AND STILL C/O HEADACHE. WILL DO CT HEAD AND CHEST TO R/O UNDERLYING PATHOLOGY. NO CHEST PAIN NO SHORTNESS OF BREATH NO SWEATS NO PARESTHESIAS OR MOTOR DEFICITS NO NAUSEA/VOMITING NO VISION CHANGES. NO C/O DIZZINESS AT THIS TIME. ON RETURN FROM CT, BP IS DOWN TO 120'S SYSTOLIC, BUT HR STILL IN 130'S AND PT WITH INCREASING ANXIETY. ADDITIONAL ATIVAN GIVEN 2144--DAUGHTER IS HERE WITH PT. SHE STATES SHE WILL TAKE PT HOME WITH HER. CONTINUED TO OBSERVE PT IN ER, GAVE IV FLUIDS--BP IS STABLE, HR DOWN TO 100, AND PT IS MUCH CALMER AND RELAXED AND NO LONGER TREMULOUS. AND STATES SHE FEELS BETTER. BOTH PT AND DAUGHTER FEEL COMFORTABLE GOING HOME. Initial ECG Impression Date: Sep 03, 2021 Initial ECG Impression Time: 19:06 Initial ECG Rate: 93 Initial ECG Rhythm: Normal Sinus Diagnostic Imaging Comments CXR--PER RADIOLOGIST REPORT AT 1947 Findings: Stable calcified granuloma in the right lung base. Otherwise, visualized lungs are clear. Please note that the posterior lower lobes are poorly evaluated by portable radiography. No pleural effusion or pneumothorax. Normal cardiomediastinal silhouette. Impression: 1. No acute cardiopulmonary process by portable radiography. CT SCANS--PER RADIOLOGIST REPORTS AT 2144 CT HEAD-- FINDINGS: The quiroga-white matter differentiation is normal. No mass effect or midline shift. The ventricles are normal in size and configuration. Basilar cisterns are patent. There are no intra-axial or extra-axial fluid collections. There is no intracranial hemorrhage. The orbits are normal. There is pansinus mucosal disease most pronounced in the ethmoid and sphenoid sinuses. Mastoid air cells are clear. No soft tissue abnormality is seen. No osseus lesions or fractures are seen. IMPRESSION: 1. No acute intracranial abnormality. 2. Pansinus mucosal disease. CT CHEST ANGIOGRAM-- FINDINGS: There is no pulmonary embolism. There is no edema or pneumonia. No pleural effusion. No pneumothorax. No suspicious nodules. There is no axillary or supraclavicular lymphadenopathy. There is no mediastinal lymphadenopathy. Heart size is normal. There are no coronary artery calcifications. No pericardial effusion. Aorta is normal in caliber. Limited views of the upper abdomen are unremarkable. There are no suspicious osseus lesions. IMPRESSION: No pulmonary embolism, clear lungs. Reviewed: Reviewed by Me Departure Impression Primary Impression: HTN (hypertension) Additional Impression: Anxiety Disposition: 01 HOME, SELF-CARE Condition: Improved Departure-Patient Inst. Decision time for Depature: 23:55 Referrals: [facility] (PCP/Family) Primary Care Physician Patient Instructions: Controlling Your Blood Pressure Through Lifestyle, DASH Diet, Anxiety, Adult ED, High Blood Pressure ED Add. Discharge Instructions: HOME, REST FOLLOW UP WITH [facility] THIS WEEK FOR FURTHER CARE--CALL IN THE MORNING TO SCHEDULE AN APPOINTMENT All discharge instructions reviewed with patient and/or family. Voiced understanding. Scripts Hydroxyzine Pamoate (Hydroxyzine Pamoate) 50 Mg Capsule 50 MG PO Q6H PRN for ANXIETY, #15 CAP Prov: KINZA CHOWDARY DO 09/03/21 KINZA CHOWDARY DO Sep 03, 2021 19:16
[2021-09-03 19:25] LABS: BASOPHILS # (AUTO) 0.1 10^3/uL (0.0-0.1); BASOPHILS % (AUTO) 1 % (0-10); EOSINOPHILS # (AUTO) 0.3 10^3/uL (0.0-0.3); EOSINOPHILS % (AUTO) 4 % (0-10); HEMATOCRIT 44 % (35-52); HEMOGLOBIN 14.9 g/dL (11.5-16.0); LYMPHOCYTES # (AUTO) 2.1 10^3/uL (1.0-4.0); LYMPHOCYTES % (AUTO) 31 % (12-44); MEAN CORPUSCULAR HEMOGLOBIN 29 pg (25-34); MEAN CORPUSCULAR HGB CONC 34 g/dL (32-36); MEAN CORPUSCULAR VOLUME 88 fL (80-99); MEAN PLATELET VOLUME 9.9 fL (9.0-12.2); MONOCYTES # (AUTO) 0.5 10^3/uL (0.0-1.0); MONOCYTES % (AUTO) 7 % (0-12); NEUTROPHILS # (AUTO) 3.8 10^3/uL (1.8-7.8); NEUTROPHILS % (AUTO) 56 % (42-75); PLATELET COUNT 241 10^3/uL (130-400); WHITE BLOOD COUNT 6.8 10^3/uL (4.3-11.0)
[2021-09-03] MEDS ORDERED: hydrALAZINE (APESOLINE) 20 MG/ML VIAL IV ONE ×2 (19:30→20:15)
--- NOTE | 2021-09-03 19:43 | Diagnostic Imaging Report ---
CHEST 1 VIEW, AP/PA ONLY Indication: Hypertension Comparison: 08/27/2020 Findings: Stable calcified granuloma in the right lung base. Otherwise, visualized lungs are clear. Please note that the posterior lower lobes are poorly evaluated by portable radiography. No pleural effusion or pneumothorax. Normal cardiomediastinal silhouette. Impression: 1. No acute cardiopulmonary process by portable radiography. Dictated by: Dictated on workstation # [id number]
[2021-09-03 19:48] LABS: ALANINE AMINOTRANSFERASE 31 U/L (0-55); ALBUMIN 4.7 GM/DL (3.2-4.5); ALKALINE PHOSPHATASE 84 U/L (40-136); BILIRUBIN,TOTAL 0.4 MG/DL (0.1-1.0); BUN/CREATININE RATIO 14; CALCIUM 10.1 MG/DL (8.5-10.1); CARBON DIOXIDE 22 MMOL/L (21-32); CHLORIDE 102 MMOL/L (98-107); CREATININE SERUM 0.88 MG/DL (0.60-1.30); GFR ESTIMATED 72; GLUCOSE 93 MG/DL (70-105); POTASSIUM 3.6 MMOL/L (3.6-5.0); SODIUM 139 MMOL/L (135-145); TOTAL PROTEIN 7.8 GM/DL (6.4-8.2)
[2021-09-03 19:59] LABS: BILIRUBIN,URINE NEGATIVE (NEGATIVE); CLARITY,URINE CLEAR; COLOR,URINE YELLOW; GLUCOSE, URINE (UA) NEGATIVE (NEGATIVE); KETONES,URINE TRACE (NEGATIVE); LEUKOCYTE ESTERASE ,URINE NEGATIVE (NEGATIVE); NITRITE,URINE NEGATIVE (NEGATIVE); PROTEIN,URINE NEGATIVE (NEGATIVE)
[2021-09-03 20:07] LABS: BACTERIA,URINE NEGATIVE /HPF
[2021-09-03] MEDS ORDERED: LORazepam INJ 2 MG/ML (ATIVAN) VIAL IVP ONE ×2 (20:15→21:45)
[2021-09-03] MEDS ORDERED: NS 100 ML (IVPB) BAG IV ONE (21:15)
[2021-09-03] MEDS ORDERED: IOHEXOL 350 MG/ML 100 ML (OMNIPAQUE 350) VIAL IV ONE (21:15)
--- NOTE | 2021-09-03 21:37 | Diagnostic Imaging Report ---
EXAMINATION: CT head without contrast. TECHNIQUE: Multiple contiguous axial images were obtained through the brain without the use of intravenous contrast. All CT scans use one or more of the following dose optimizing techniques: automated exposure control, MA and/or KvP adjustment based on patient size and exam type or iterative reconstruction. HISTORY: Elevated blood pressure, neurologic deficit. COMPARISON: None available. FINDINGS: The quiroga-white matter differentiation is normal. No mass effect or midline shift. The ventricles are normal in size and configuration. Basilar cisterns are patent. There are no intra-axial or extra-axial fluid collections. There is no intracranial hemorrhage. The orbits are normal. There is pansinus mucosal disease most pronounced in the ethmoid and sphenoid sinuses. Mastoid air cells are clear. No soft tissue abnormality is seen. No osseus lesions or fractures are seen. IMPRESSION: 1. No acute intracranial abnormality. 2. Pansinus mucosal disease. Dictated by: Dictated on workstation # [id number]
--- NOTE | 2021-09-03 21:39 | Diagnostic Imaging Report ---
EXAMINATION: CT angiography of the chest. TECHNIQUE: Contrast enhanced thin section helical images were obtained through the chest with intravenous contrast timed for the optimal opacification of the arterial structures per CTA protocol. Post-processing, reconstructions and interpretation of angiographic images of the vessels was performed. 3D MIP reconstructions were performed and reviewed. All CT scans use one or more of the following dose optimizing techniques: automated exposure control, MA and/or KvP adjustment based on patient size and exam type or iterative reconstruction. HISTORY: Elevated blood pressure, shortness of breath. COMPARISON: None available. FINDINGS: There is no pulmonary embolism. There is no edema or pneumonia. No pleural effusion. No pneumothorax. No suspicious nodules. There is no axillary or supraclavicular lymphadenopathy. There is no mediastinal lymphadenopathy. Heart size is normal. There are no coronary artery calcifications. No pericardial effusion. Aorta is normal in caliber. Limited views of the upper abdomen are unremarkable. There are no suspicious osseus lesions. IMPRESSION: No pulmonary embolism, clear lungs. Dictated by: Dictated on workstation # [id number]
[2021-09-03] MEDS ORDERED: LACTATED RINGERS 1,000 ML IV ONE (21:45)
[2021-09-03] MEDS ORDERED: HYDR50CA3 PO (21:59)
[2021-09-03 22:45] VITALS: BP 104/50
== END 2021-09-03 22:49 | disposition home or self-care (01) ==
LOC: EDUNIT# 18:59 → ER 19:01
DX: I10 Essential (primary) hypertension (principal); F41.9 Anxiety disorder, unspecified; R00.0 Tachycardia, unspecified
CPT/HCPCS: 36415; 70450; 71045; 71275; 80053; 81000; 83735; 83880; 84484; 85025; 93005; 93041; 96361; 96374; 96375; 96376

== ENCOUNTER 2022-07-30 10:34 | Emergency (ER) | payer SELFPAY ==
[~2022-07-30] VITALS: Ht 162 cm; Wt 63.0 kg
[~2022-07-30 10:34] MED LIST changes: +HYDR50CA3 PO
--- NOTE | 2022-07-30 11:26 | ED GI ---
General Chief Complaint: Abdominal/GI Problems Stated Complaint: KIDNEY STONES Nursing Triage Note: LEFT SIDED FLANK PAIN STARTING ON WEDNESDAY. WAS SEEN AT [facility] ON WEDNESDAY AND GIVEN A SHOT. CALLED THEM BACK DUE TO CONTINUING PAIN AND WAS TOLD TO COME TO THE ER FOR A CT. Source of Information: Patient Exam Limitations: No Limitations History of Present Illness Date Seen by Provider: Jul 30, 2022 Time Seen by Provider: 11:23 Initial Comments Patient is a 66-year-old female with a history of kidney stones who presents ED with acute onset of left flank pain. This started on Wednesday with acute onset. Described as sharp with radiation to the left lateral abdomen. She reports similar type pain 9 years ago was diagnosed with kidney stone. She states she went to [facility] on Wednesday had a urinalysis positive for hematuria and was given a Toradol shot with some improvement. Pain continued yesterday lasting for several hours but does resolve. Denies of any urinary symptoms such as increased urine frequency, pain with urination. She did vomit 2 days ago. Denies of any diarrhea. History of appendectomy and . She did take ibuprofen yesterday with some improvement pain. Pain has improved on arrival at this time and refused pain medication. She does not appear in acute distress. Denies chest pain, shortness of breath, cough, headache, dizziness, fever, chills, change in mental status Allergies and Home Medications Allergies Coded Allergies: No Known Drug Allergies (Unverified , 08/27/20) Patient Home Medication List Home Medication List Reviewed: Yes Hydroxyzine Pamoate (Hydroxyzine Pamoate) 50 Mg Capsule, 50 MG PO Q6H PRN for ANXIETY Prescribed by: KINZA CHOWDARY on 09/03/212158 Lorazepam (Ativan) 0.5 Mg Tablet, 0.5 MG PO HS Prescribed by: EL PEREZ on 09/03/20 0205 Discontinued Medications Tamsulosin HCl (Flomax) 0.4 Mg Cap, 0.4 MG PO DAILY Prescribed by: AKBAR TONEY on 07/30/22 1336 Review of Systems Review of Systems Constitutional: No chills, No fever, No malaise, No weakness EENTM: No Blurred Vision, No Eye Pain, No Ear Pain, No Mouth Pain, No Mouth Swelling Respiratory: Denies Cough, Denies SOA With Exertion, Denies SOA at Rest Cardiovascular: Denies Chest Pain Gastrointestinal: Abdominal Pain; Denies Diarrhea; Nausea, Vomiting Genitourinary: Denies Burning, Denies Discharge, Denies Frequency; Flank Pain, Hematuria; Denies Urgency Musculoskeletal: back pain; No joint pain Skin: No change in color Psychiatric/Neurological: Denies Anxiety, Denies Depressed All Other Systems Reviewed Negative Unless Noted: Yes Past Cnpcewr-Hvkfhg-Gthxpo Hx Patient Social History Tobacco Use?: No Substance use?: No Alcohol Use?: No Immunizations Up To Date Tetanus Booster (TDap): Unknown PED Vaccines UTD: Yes Seasonal Allergies Seasonal Allergies: Yes Past Medical History Surgeries: Yes Appendectomy, Breast, Section Respiratory: Yes Asthma Cardiac: No Neurological: No Genitourinary: No Gastrointestinal: No Musculoskeletal: No Endocrine: No HEENT: No Cancer: No Psychosocial: Yes Anxiety Integumentary: No Blood Disorders: No Physical Exam Vital Signs Vital Signs - First Documented 07/30/22 11:05 Temp 37.1 Pulse 88 Resp 16 B/P (MAP) 165/85 (111) Pulse Ox 98 O2 Delivery Room Air Capillary Refill : Less Than 3 Seconds Height/Weight/BMI Height: '" Weight: lbs. oz. kg; 24.00 BMI Method: General Appearance: WD/WN, no apparent distress HEENT: PERRL/EOMI, normal ENT inspection, TMs normal, pharynx normal Neck: non-tender, full range of motion, supple Respiratory: chest non-tender, lungs clear, normal breath sounds, no respiratory distress, no accessory muscle use Cardiovascular: regular rate, rhythm, no edema, no gallop, no JVD Gastrointestinal: normal bowel sounds, soft, no organomegaly, tenderness (Left lateral abdominal tenderness.) Extremities: normal range of motion, non-tender, normal inspection, no pedal edema Back: CVA tenderness (L) Pelvic: normal external exam Neurologic/Psychiatric: head buyer tobacco II-XII nml as tested, no motor/sensory deficits, alert, normal mood/affect, oriented x 3 Skin: normal color, warm/dry Progress/Results/Core Measures Results/Orders Lab Results Laboratory Tests Test 07/30/22 11:17 07/30/22 11:38 Range/Units Urine Color YELLOW Urine Clarity CLEAR Urine pH 6.5 5-9 Urine Specific Tye 1.015 L 1.016-1.022 Urine Protein NEGATIVE NEGATIVE Urine Glucose (UA) NEGATIVE NEGATIVE Urine Ketones NEGATIVE NEGATIVE Urine Nitrite NEGATIVE NEGATIVE Urine Bilirubin NEGATIVE NEGATIVE Urine Urobilinogen 0.2 < = 1.0 MG/DL Urine Leukocyte Esterase TRACE H NEGATIVE Urine RBC (Auto) TRACE-I H NEGATIVE Urine RBC 0-2 /HPF Urine WBC 5-10 H /HPF Urine Crystals PRESENT H /LPF Urine Calcium Oxalate Crystals MODERATE H /LPF Urine Amorphous Sediment /LPF Urine Bacteria TRACE /HPF Urine Casts NONE /LPF Urine Mucus NEGATIVE /LPF Urine Culture Indicated YES White Blood Count 8.1 4.3-11.0 10^3/uL Red Blood Count 4.83 3.80-5.11 10^6/uL Hemoglobin 14.1 11.5-16.0 g/dL Hematocrit 42 35-52 % Mean Corpuscular Volume 87 80-99 fL Mean Corpuscular Hemoglobin 29 25-34 pg Mean Corpuscular Hemoglobin Concent 34 32-36 g/dL Red Cell Distribution Width 12.6 10.0-14.5 % Platelet Count 183 130-400 10^3/uL Mean Platelet Volume 9.9 9.0-12.2 fL Immature Granulocyte % (Auto) 0 % Neutrophils (%) (Auto) 71 42-75 % Lymphocytes (%) (Auto) 18 12-44 % Monocytes (%) (Auto) 10 0-12 % Eosinophils (%) (Auto) 1 0-10 % Basophils (%) (Auto) 0 0-10 % Neutrophils # (Auto) 5.7 1.8-7.8 10^3/uL Lymphocytes # (Auto) 1.4 1.0-4.0 10^3/uL Monocytes # (Auto) 0.8 0.0-1.0 10^3/uL Eosinophils # (Auto) 0.1 0.0-0.3 10^3/uL Basophils # (Auto) 0.0 0.0-0.1 10^3/uL Immature Granulocyte # (Auto) 0.0 0.0-0.1 10^3/uL Sodium Level 143 135-145 MMOL/L Potassium Level 3.8 3.6-5.0 MMOL/L Chloride Level 105 98-107 MMOL/L Carbon Dioxide Level 25 21-32 MMOL/L Anion Gap 13 5-14 MMOL/L Blood Urea Nitrogen 10 7-18 MG/DL Creatinine 0.88 0.60-1.30 MG/DL Estimat Glomerular Filtration Rate 72 BUN/Creatinine Ratio 11 Glucose Level 107 H 70-105 MG/DL Calcium Level 9.5 8.5-10.1 MG/DL Corrected Calcium 9.3 8.5-10.1 MG/DL Total Bilirubin 0.6 0.1-1.0 MG/DL Aspartate Amino Transf (AST/SGOT) 40 H 5-34 U/L Alanine Aminotransferase (ALT/SGPT) 48 0-55 U/L Alkaline Phosphatase 104 40-136 U/L Total Protein 7.2 6.4-8.2 GM/DL Albumin 4.3 3.2-4.5 GM/DL Lipase 23 8-78 U/L My Orders Orders - DAVIAN BURK Ua Culture If Indicated (07/30/22 11:12) Cbc With Automated Diff (07/30/22 11:22) Comprehensive Metabolic Panel (07/30/22 11:22) Lipase (07/30/22 11:22) Ct Abd/Pelvis Wo(Kidney Stone) (07/30/22 11:22) Ns Iv 1000 Ml (Sodium Chloride 0.9%) (07/30/22 11:33) Urine Culture (07/30/22 11:17) Abdomen/Kub 1view (07/30/22 13:48) Vital Signs/I&O 07/30/22 11:05 Temp 37.1 Pulse 88 Resp 16 B/P (MAP) 165/85 (111) Pulse Ox 98 O2 Delivery Room Air Blood Pressure Mean: 111 Departure Communication (PCP) Patient with a obstructing 6 mm calculus of the left UPJ. Moderate hydronephrosis without nephric stranding. Urinalysis with hematuria, white blood cells and trace leukocytes. She is not toxic appearing. Normal white blo od count and kidney function. She refusing pain medication currently pain-free. KUB was ordered after talking to Dr. Zaragoza urologist at [facility]. We do not currently have any urologist on-call at this time. He requested to get copies of her imaging and lab work and to follow-up in the clinic today to discuss further lithotripsy later this week or next week. Patient is currently pain-free. No medication was provided at this time and will follow-up with specialty. Return precaution were discussed. Impression Primary Impression: Kidney stone Disposition: 01 HOME, SELF-CARE Condition: Stable Departure-Patient Inst. Decision time for Depature: 13:36 Referrals: JOSIANE OCAMPO DO (PCP/Family) Primary Care Physician Patient Instructions: Kidney Stone, Adult ED Add. Discharge Instructions: Recommend following up with Dr. [place] [address] [place] [id number] [facility]. Phone number is [phone] All discharge instructions reviewed with patient and/or family. Voiced understanding. DAVIAN BURK Jul 30, 2022 11:26
[2022-07-30 11:37] LABS: BILIRUBIN,URINE NEGATIVE (NEGATIVE); CLARITY,URINE CLEAR; COLOR,URINE YELLOW; GLUCOSE, URINE (UA) NEGATIVE (NEGATIVE); KETONES,URINE NEGATIVE (NEGATIVE); LEUKOCYTE ESTERASE ,URINE TRACE (NEGATIVE); NITRITE,URINE NEGATIVE (NEGATIVE); PH,URINE 6.5 (5-9); PROTEIN,URINE NEGATIVE (NEGATIVE)
[2022-07-30] MEDS: NS IV 1000 ML 1,000 ML IV STA (11:40)
[2022-07-30 11:52] LABS: BASOPHILS % (AUTO) 0 % (0-10); EOSINOPHILS # (AUTO) 0.1 10^3/uL (0.0-0.3); EOSINOPHILS % (AUTO) 1 % (0-10); HEMATOCRIT 42 % (35-52); HEMOGLOBIN 14.1 g/dL (11.5-16.0); LYMPHOCYTES # (AUTO) 1.4 10^3/uL (1.0-4.0); LYMPHOCYTES % (AUTO) 18 % (12-44); MEAN CORPUSCULAR HEMOGLOBIN 29 pg (25-34); MEAN CORPUSCULAR HGB CONC 34 g/dL (32-36); MEAN CORPUSCULAR VOLUME 87 fL (80-99); MEAN PLATELET VOLUME 9.9 fL (9.0-12.2); MONOCYTES # (AUTO) 0.8 10^3/uL (0.0-1.0); MONOCYTES % (AUTO) 10 % (0-12); NEUTROPHILS # (AUTO) 5.7 10^3/uL (1.8-7.8); NEUTROPHILS % (AUTO) 71 % (42-75); PLATELET COUNT 183 10^3/uL (130-400); WHITE BLOOD COUNT 8.1 10^3/uL (4.3-11.0)
[2022-07-30 11:55] LABS: RBC,URINE 0-2 /HPF
[2022-07-30 11:56] LABS: CALCIUM OXALATE CRYSTALS,UR MODERATE /LPF
[2022-07-30 12:02] LABS: BACTERIA,URINE TRACE /HPF
[2022-07-30 12:13] LABS: ALBUMIN 4.3 GM/DL (3.2-4.5); BILIRUBIN,TOTAL 0.6 MG/DL (0.1-1.0); CALCIUM 9.5 MG/DL (8.5-10.1); CREATININE SERUM 0.88 MG/DL (0.60-1.30); POTASSIUM 3.8 MMOL/L (3.6-5.0); TOTAL PROTEIN 7.2 GM/DL (6.4-8.2)
--- NOTE | 2022-07-30 13:11 | Diagnostic Imaging Report ---
INDICATION: Left flank pain, microscopic hematuria. TECHNIQUE: Multiple contiguous axial images were obtained through the abdomen and pelvis without the use of intravenous contrast. Auto Exposure Controls were utilized during the CT exam to meet ALARA standards for radiation dose reduction. There is no prior study for comparison. FINDINGS: The visualized portions of the lung bases show a calcified granuloma in the right base. There is some linear scarring in the right base. There is no pleural fluid. There is no free intraperitoneal air. The liver shows no focal lesion. The gallbladder appears unremarkable. Spleen shows numerous calcified granulomas, otherwise normal in appearance. The adrenals and pancreas appear normal. Right kidney appears unremarkable. Left kidney shows moderate hydronephrosis, secondary to a stone at the UPJ measuring about 6 mm. There are no stones seen beyond this point. There is no retroperitoneal mass or adenopathy. There is no ascites or abnormal fluid collection. Visualized bowel loops are unremarkable. There is no adnexal mass or free fluid. IMPRESSION: There is moderate left hydronephrosis, secondary to a 6 mm stone at the left UPJ. There is no other acute finding. There are chronic granulomatous changes as above. Dictated by: Dictated on workstation # [id number]
[2022-07-30] MEDS ORDERED: TMSL.4C PO (13:36)
--- NOTE | 2022-07-30 14:16 | Diagnostic Imaging Report ---
INDICATION: Left-sided flank pain. FINDINGS: There is some stool and air in the colon. The fecal load is not pathologic. No significant bowel dilatation. Urinary bladder is midline. No suspect calcifications. No mass effect. IMPRESSION: Unremarkable abdominal radiograph. Dictated by: Dictated on workstation # [id number]
[2022-07-30 14:20] VITALS: BP 130/82
== END 2022-07-30 14:20 | disposition home or self-care (01) ==
LOC: EDUNIT# 10:34 → ER 10:36
DX: N13.2 Hydronephrosis with renal and ureteral calculous obstruction (principal); Z90.49 Acquired absence of other specified parts of digestive tract; Z28.310 Unvaccinated for COVID-19
CPT/HCPCS: 36415; 74018; 74176; 80053; 81000; 83690; 85025; 87088